=== PATIENT | female | born 1940 | race Caucasian/White ===

== ENCOUNTER 2017-02-07 05:23 | Inpatient (IN) | payer OTHER ==
[2017-01-26 11:16] VITALS: BMI 35.0
--- NOTE | 2017-01-26 11:54 | PAT Medication Instructions ---
Service Date Jan 26, 2017. Current Home Medication List Acetaminophen (Tylenol Arthritis Ext Rel), 1,300 MG PO TID Aspirin (Aspirin Ec), 81 MG PO QAM Buspirone Hcl (Buspirone Hcl), 10 MG PO TID Citalopram Hydrobromide (Celexa), 20 MG PO QAM Fluticasone Propionate (Nasal) (Flonase Allergy Relief), 2 SPRAYS JUVENAL QAM Hydroxychloroquine Sulfate (Plaquenil), 400 MG PO HS Loratadine (Claritin), 10 MG PO QAM Losartan Potassium (Cozaar), 25 MG PO QAM Metformin Hcl (Glucophage), 1,000 MG PO BID Metoprolol Tartrate (Lopressor) (Lopressor), 1.5 MG PO HS Multivitamin (Multivitamin), 1 TAB PO QPM Omeprazole (Prilosec), 20 MG PO QAM Polyethylene Glycol 3350 (Bulk (Polyethylene Glycol 3350), 17 GM PO QAM Senna (Senokot), 4 TAB PO HS Tramadol (Ultram), 50 MG PO Q6H PRN for RN Triamterene/Hctz (Triamterene/Hctz 37.5-25MG), 1 TAB PO QAM Trolamine Salicylate (Aspercreme), 1 DOSE TOP PRN [Artificial Tears], 1 DROP OPB QAM [Calcium], 600 MG PO BID [Oxybutynin], 15 MG PO QAM Medication Instructions For Your Scheduled Surgery - Hold the following medications 48 hours prior to surgery: Metformin Hcl (Glucophage), 1,000 MG PO BID - Hold the following medications 24 hours prior to surgery: Trolamine Salicylate (Aspercreme), 1 DOSE TOP PRN - Hold the following medications the morning of surgery: Loratadine (Claritin), 10 MG PO QAM Losartan Potassium (Cozaar), 25 MG PO QAM Polyethylene Glycol 3350 (Bulk (Polyethylene Glycol 3350), 17 GM PO QAM [Calcium], 600 MG PO BID Triamterene/Hctz (Triamterene/Hctz 37.5-25MG), 1 TAB PO QAM - Take the following medications the morning of surgery with a sip of water OTHERWISE NOTHING TO EAT OR DRINK AFTER MIDNIGHT: [Oxybutynin], 15 MG PO QAM Acetaminophen (Tylenol Arthritis Ext Rel), 1,300 MG PO TID (may take if needed up to 4 hours prior to surgery) Tramadol (Ultram), 50 MG PO Q6H PRN (may take if needed up to 4 hours prior to surgery) Aspirin (Aspirin Ec), 81 MG PO QAM Citalopram Hydrobromide (Celexa), 20 MG PO QAM Buspirone Hcl (Buspirone Hcl), 10 MG PO TID Omeprazole (Prilosec), 20 MG PO QAM Fluticasone Propionate (Nasal) (Flonase Allergy Relief), 2 SPRAYS JUVENAL QAM [Artificial Tears], 1 DROP OPB QAM - Take the following medications as scheduled the night before surgery: Metoprolol Tartrate (Lopressor) (Lopressor), 1.5 MG PO HS Acetaminophen (Tylenol Arthritis Ext Rel), 1,300 MG PO TID Buspirone Hcl (Buspirone Hcl), 10 MG PO TID Multivitamin (Multivitamin), 1 TAB PO QPM Hydroxychloroquine Sulfate (Plaquenil), 400 MG PO HS [Calcium], 600 MG PO BID Senna (Senokot), 4 TAB PO HS Tramadol (Ultram), 50 MG PO Q6H PRN If you have any questions please call us at [phone] or [phone] or [phone]
--- NOTE | 2017-01-26 12:36 | DIAGNOSTIC IMAGING REPORT ---
TWO VIEW CHEST CLINICAL HISTORY: Preoperative examination. FINDINGS: PA and lateral chest radiographs are obtained. No prior studies are available for comparison at the time of dictation. The PA view is degraded by apical lordotic positioning. The cardiomediastinal silhouette is unremarkable. There is atherosclerotic calcification of the thoracic aorta. There is minimal left basilar atelectasis. The lungs and pleural spaces are otherwise clear. There is no pneumothorax. The skeletal structures are osteopenic. The bony thorax appears intact. Large calcified joint bodies are present in the right shoulder. IMPRESSION: No active disease in the chest. Electronically signed by: Sukumar Acosta M.D. 01/26/2017 12:34 PM Dictated Date/Time: 01/26/2017 12:33 PM
[2017-01-26 12:53] LABS: PROTHROMBIN TIME (PATIENT) 10.7 SECONDS (9.0-12.0)
--- NOTE | 2017-02-06 18:09 | HISTORY & PHYSICAL EXAMINATION ---
DATE OF ADMISSION: 02/07/2017 CHIEF COMPLAINT: Chronic right shoulder pain. HISTORY OF PRESENT ILLNESS: This is a 76-year-old female patient of Dr. Jerry'sera complaining of chronic right shoulder pain, longstanding, now progressively getting worse. The patient has been diagnosed with end-stage osteoarthritis, per clinical and radiographic exams. PAST MEDICAL HISTORY: Hypertension, chronic cough, anxiety, carpal tunnel syndrome, osteoarthritis, spine problems, neck problems, sciatica, acid reflux, and hiatal hernia. SOCIAL HISTORY: The patient was a 10-year smoker, quit in 1975. Alcohol none. Illicit drugs none. PAST SURGICAL HISTORY: Hysterectomy, gallbladder, total knee replacement on the right, total knee replacement on the left and 2 back surgeries. REVIEW OF SYSTEMS: The patient complains of chronic right shoulder pain. Otherwise, denies any shortness of breath, chest pain, nausea, vomiting or any other joint complaints. FAMILY HISTORY: Noncontributory. MEDICATIONS: 1. MiraLax daily. 2. Ditropan 15 mg daily. 3. Metformin 1000 mg b.i.d. 4. Losartan 25 mg daily. 5. Loratadine 10 mg daily. 6. Buspirone 10 mg 3 times daily. 7. Plaquenil 200 mg 2 tablets daily. 8. Maxzide that is triamterene/hydrochlorothiazide 37.5/25 mg daily. 9. Celexa 20 mg daily. 10. Prilosec 20 mg daily. 11. Tramadol 50 mg as needed. 12. Flonase 50 mg administered 2 sprays in each nostril daily. 13. Lopressor 25 mg 1/2 tablet daily. 14. Aspirin 81 mg daily. 15. Senna 8.6 mg 2 capsules daily as needed p.r.n. constipation. 16. Artificial tears 0.1-0.3% ophthalmic solution as needed. 17. Tylenol as needed. 18. Calcium daily. 19. A multivitamin daily. ALLERGIES: INCLUDE SULFA, MORPHINE, CODEINE. PHYSICAL EXAMINATION: GENERAL: Well-developed, well-nourished 76-year-old female patient of Dr. Downey complaining of chronic right shoulder pain, longstanding, now progressively getting worse. The patient failed conservative treatments and wishes to proceed with a right total shoulder arthroplasty. Well-developed, well-nourished female in no acute distress. She is alert and oriented x3 and pleasant. HEENT: Normocephalic, atraumatic. Extraocular motions are intact. Pupils are equal and reactive to light. HEART: Regular rate and rhythm. No murmurs are appreciated. LUNGS: Clear. ABDOMEN: Soft and nontender. EXTREMITIES: Right shoulder reveals active range of motion of 0-160, passively to 0-180. She has crepitation and pain with passive range of motion. She has 4+/5 strength. NEUROLOGIC: Neurovascularly, she is intact in her right upper extremity. DIAGNOSES: Right shoulder end-stage osteoarthritis with a history of hypertension, chronic cough, anxiety, carpal tunnel syndrome, osteoarthritis, spine problems, neck problems, sciatica, acid reflux, hiatal hernia. PLAN: The patient was advised of her diagnosis. Indications, risks, benefits, and postop course have all been reviewed. The patient will proceed with a right total shoulder arthroplasty. Necessary consent forms, preoperative testing and clearances will be obtained.
[2017-02-07] VITALS (9 sets, daily range): BP systolic 105–168; BP diastolic 56–109; PULSE 71–101; TEMP 36.5–36.8; O2SAT 92–98; Ht 162.6 cm; Wt 91.5 kg
[~2017-02-07] VITALS: Ht 162.6 cm; Wt 91.5 kg
[~2017-02-07 05:23] MED LIST: ACET1TAB84 PO; ARTISOL8 OPB; ASPI81TA28 PO; BUSP-8 PO; CALC-51 PO; CITA20TA9 PO; CLR10 PO; FLUT0.15 NAE; HYDR200T5 PO; LOSA25TA18 PO; METF-384 PO; METO25TA56 PO; MULT-506 PO; OXYBUTYNIN PO; POLY1POW2 PO; PRLSR20 PO; SENN-61 PO; TRAM-10 PO; TRIATAB3 PO; TROL10LO TOP
[2017-02-07] MEDS ORDERED: ACETAMINOPHEN 500 MG TAB PO SCH (06:00)
[2017-02-07] MEDS ORDERED: CeleBREX 200 MG CAP PO SCH (06:00)
[2017-02-07] MEDS ORDERED: FAMOTIDINE 20 MG TAB PO SCH (06:00)
[2017-02-07] MEDS ORDERED: METOCLOPRAMIDE HCL 10 MG TAB PO SCH (06:00)
[2017-02-07] MEDS ORDERED: LACTATED RINGER'S 1000ML IV SCH (06:00)
[2017-02-07] MEDS ORDERED: LACTATED RINGER'S 1000ML 1,000 ML IV SCH (06:00)
[2017-02-07] MEDS ORDERED: GABAPENTIN 300 MG CAP PO SCH (06:00)
[2017-02-07] MEDS ORDERED: CEFAZOLIN 2000 MG/60 ML D5W 60 ML IV SCH (06:00)
[2017-02-07] MEDS ORDERED: MELATAB2 PO (06:25)
[2017-02-07] MEDS ORDERED: ROPIVACAINE 0.5% 5 MG/ML 30 ML VIAL ONE (06:34)
[2017-02-07] MEDS ORDERED: DEXAMETHASONE SOD INJ 4 MG/ML VIAL ONE (06:56)
[2017-02-07] MEDS ORDERED: MIDAZOLAM HCL 1 MG/ML 2ML VIAL ONE ×2 (06:56→06:57)
[2017-02-07] MEDS ORDERED: NEOSTIGMINE METHYLSULFATE 5 MG/5 ML SYR ONE (06:56)
[2017-02-07] MEDS ORDERED: GLYCOPYRROLATE INJ 0.2 MG/ML VIAL ONE (06:56)
[2017-02-07] MEDS ORDERED: PROPOFOL IV EMULSION 10 MG/ML 20 ML VIAL IV ONE (06:56)
[2017-02-07] MEDS ORDERED: LIDOCAINE HCL 2% 2 ML VIAL (20MG/ML) ONE (06:56)
[2017-02-07] MEDS ORDERED: ONDANSETRON INJ 2 MG/ML 2 ML VIAL ONE ×2 (06:56→09:44)
[2017-02-07] MEDS ORDERED: ROCURONIUM BROMIDE 10 MG/ML 5 ML VIAL ONE (06:56)
[2017-02-07] MEDS ORDERED: FENTANYL CITRATE INJ 50 MCG/1 ML 2 ML VIAL ONE (06:57)
[2017-02-07] MEDS ORDERED: BACITRACIN 50000 UNIT VIAL ONE (07:01)
--- NOTE | 2017-02-07 07:17 | History & Physical Bridge Note ---
H&P Re-Evaluation Bridge Note: I have examined the patient, reviewed the History & Physical and in the interval since the performance of the History & Physical I have noted the following changes of clinical significance: No changes noted
[2017-02-07] MEDS ORDERED: ATROPINE SULFATE 0.1 MG/ML 5ML SYR IV PRN (09:30)
[2017-02-07] MEDS ORDERED: EpHEDrine SULFATE INJ 50 MG/ML AMP IV PRN (09:30)
[2017-02-07] MEDS ORDERED: ONDANSETRON INJ 2 MG/ML 2 ML VIAL IV PRN ×2 (09:30→10:15)
[2017-02-07] MEDS ORDERED: FENTANYL CITRATE INJ 50 MCG/1 ML 2 ML VIAL IV PRN (09:30)
[2017-02-07] MEDS ORDERED: SOD PHOSPHATE/SOD BIPHOSPHATE ENEMA 132 ML BTL PR PRN (10:15)
[2017-02-07] MEDS ORDERED: ZOLPIDEM TARTRATE 5 MG TAB PO PRN (10:15)
[2017-02-07] MEDS ORDERED: HYDROmorphone INJ 0.5 MG/0.5 ML SYR IV PRN (10:15)
[2017-02-07] MEDS ORDERED: MAGNESIUM HYDROXIDE SUSP 30 ML UDC PO PRN (10:15)
[2017-02-07] MEDS ORDERED: NALOXONE HCL 0.4 MG/1 ML VIAL/CARP IV PRN (10:15)
[2017-02-07] MEDS ORDERED: BISACODYL 10 MG SUPP PR PRN (10:15)
--- NOTE | 2017-02-07 10:38 | [facility] Operative Report ---
Operative Report Operative Date Feb 07, 2017. Pre-Operative Diagnosis End stage Osteoarthritis, right shoulder Post-Operative Diagnosis same multiple loose bodies and synovitis tendinopathy rotator cuff partial Procedure(s) Performed right total shoulder replacement and biceps tenodesis and removal loose bodies and rotator cuff debridement Surgeon Dr. Jerry Electrical Engineering Technologist Surgeon(s) Olayinka Mills PA-C Estimated Blood Loss 75 ml Findings as above Specimens A: Right humeral Head Drains 2 hemovac Anesthesia general and regional Complication(s) None Disposition Recovery Room / PACU Indications end stage djd oa I attest to the content of the Intraoperative Record and any orders documented therein. Any exceptions are noted below.
--- NOTE | 2017-02-07 10:45 | Anesthesiology Progress Note ---
Anesthesia Post Op Note Date & Time Feb 07, 2017 at 10:45 Vital Signs Pain Intensity: 0 Vital Signs Past 12 Hours Date Time Temp Pulse Resp B/P Pulse Ox O2 Delivery O2 Flow Rate FiO2 02/07/17 10:40 106 16 147/75 95 Nasal Cannula 2 02/07/17 10:30 93 16 97/71 99 Mask 10 02/07/17 10:20 96 16 171/68 97 Mask 10 02/07/17 10:14 36.2 89 16 136/77 99 Mask 10 02/07/17 06:09 36.5 71 18 168/75 96 Room Air 149/109 Notes Mental Status: alert / awake / arousable, participated in evaluation Pt Amnestic to Procedure: Yes Nausea / Vomiting: adequately controlled Pain: adequately controlled Airway Patency, RR, SpO2: stable & adequate BP & HR: stable & adequate Hydration State: stable & adequate Anesthetic Complications: no major complications apparent
--- NOTE | 2017-02-07 10:59 | DIAGNOSTIC IMAGING REPORT ---
RIGHT SHOULDER MIN 2 VIEWS ROUTINE CLINICAL HISTORY: Post shoulder surgery Right COMPARISON: None. DISCUSSION: Total right shoulder arthroplasty. Prosthetic is in good position. Surgical drains are in position. There is no evidence for soft tissue swelling. IMPRESSION: Anatomic alignment status post total right shoulder replacement Electronically signed by: Olayinka Sotomayor M.D. 02/07/2017 10:58 AM Dictated Date/Time: 02/07/2017 10:58 AM
--- NOTE | 2017-02-07 12:27 | OPERATIVE REPORT ---
DATE OF OPERATION: 02/07/2017 INDICATION FOR PROCEDURE: The patient is a 76-year-old female with progressive chronic right shoulder pain with end-stage osteoarthritis. She is [id number] in the glenohumeral joint. She has inferior osteophytes around the humeral head. She has multiple loose bodies in the shoulder. PREOPERATIVE DIAGNOSIS: End-stage right shoulder glenohumeral osteoarthritis, multiple loose bodies. POSTOPERATIVE DIAGNOSIS: Same including chronic biceps tenosynovitis with rotator cuff tendinopathy, partial tear rotator cuff, glenohumeral synovitis. PROCEDURE: Right total shoulder replacement including biceps tenodesis, removal of multiple loose bodies and debridement, partial tear rotator cuff. SURGEON: Dr. Jerry. REGIONAL LOSS PREVENTION MANAGER: Olayinka Mills PA-C. ANESTHESIA: Regional block general. OPERATIVE PROCEDURE: The patient was taken to the operating room, anesthetized under regional block and general anesthetic. She was placed on the operating room table on a standard operating room table in approximately 30-40 degree beach chair position. She had a Chapman catheter placed, TEDs and SCDs placed. She had a towel roll placed on the medial border of her right scapula. She was translated to the right side of the bed, so her shoulder could be extended off the bed and rotated as necessary. Her head was placed on a foam headrest. She had protective eyewear placed. Right shoulder was then examined under anesthesia. She had good forward elevation 150 degrees, abduction to 90, external rotation to 40. She had an obese arm. Right shoulder and upper extremity was sterilely prepped and draped with ChloraPrep in usual fashion. Anterior deltopectoral approach was performed. A longitudinal incision was made deltopectoral interval. Skin was incised sharply. Deep layer fat was divided down to the fascia. The cephalic vein was dissected out and retracted laterally with the deltoid. The upper pectoralis tendon was identified. One centimeter of the pectoralis was released for inferior exposure. Biceps tendon had significant chronic tenosynovitis. The tendon was tenodesed to the pectoralis tendon using [id number] #2 Fiberwire sutures. The biceps was resected proximally. The clavipectoral fascia was divided at the lateral margin of the conjoined tendon and extended up to the CA ligament which was preserved. The subacromial bursa was resected. Rotator cuff was noted to be completely intact. Subscap supraspinatus, infraspinatus and teres minor were all intact. A self-retaining retractor was placed. The circumflex vessels were identified, tied off with silk ties and divided laterally. The subscap muscle fibers were split at the level of the circumflex vessels leaving a cup of subscap fibers to protect the axillary nerve inferiorly. A Kitner elevator was used to reflect these fibers off the inferior capsule and a blunt Hohmann retractor was placed underneath the inferior capsule to protect the axillary nerve. The rotator interval was opened up. An incision was made laterally and then the subscapularis tendon was taken down with a transtendinous incision leaving a cuff of tissue for repair on the lesser tuberosity. A #1 Vicryl traction suture was placed into the end of the subscapularis tendon. The capsule was then taken down off the neck of the humerus. Humerus was gradually externally rotated as the capsule was released off the neck. This revealed she had a large inferior humeral osteophyte, and a large osteophyte right along the neck area. These osteophytes were removed with an artist chisel and rongeur. The humeral head was completely exposed eburnated bone. Glenoid was completely exposed eburnated bone and had a large anterior inferior osteophyte on the glenoid as well. A Fukuda retractor was placed into the joint. The labrum was resected circumferentially and the biceps tendon was resected as well. This revealed some very large loose bodies, one was at least 2.5 cm x 1.5 cm and there was some other small loose bodies that were removed. The capsule was then released subperiosteally anterior inferiorly and posterior inferiorly using electrocautery on bone and with a Wisdom elevator with the blunt Whitney retractor previously been placed to protect the axillary nerve which was identified with a tug test prior to placing tractor. At this time, the humeral head was re-exposed with extension and external rotation. Anatomic cut was made to resect the humeral articular surface. Then we retracted the humerus laterally and this revealed some undersurface partial tearing of the infraspinatus which was frayed and some of this was just inflamed and thickened capsule, so we resected this tissue back to intact infraspinatus tendon tissue. We investigated the entire joint for any further loose bodies and no further were identified. We also did a release of the anterior capsule down to the glenoid and the rotator interval down to the anterior release so we ended up with a 360 degree release of the subscapularis. At this time, we placed glenoid retractors to fully expose the glenoid. I used the Tornier total shoulder arthroplasty system for the procedure. We used the Affiniti CortiLoc Glenoid. The central drill hole was made for the reamer. There was a little bit of eccentric wear so we did ream more toward the anterior glenoid to recreate normal version. Then after the reamer was used for a 44 glenoid the central drill hole was widened. The peg holes were drilled and then the trial reduction was performed and then the trial was removed. The trial had excellent fit. After irrigation copiously with antibiotic solution and bacitracin epinephrine soaked sponges were packed into each individual hole and then the Palacos G cement was vacuum mixed. Then the glenoid was cemented cementing the peripheral peg holes, base of the central peg with central peg was essentially just pressfit without cementing at the medial aspect. This was impacted in position with a very tight pressfit and all excess cement was cleared and the implant was held in position until the cement cured. Then we went ahead and re-exposed the humeral cut surface. Central awl was used followed by broaches up to 3 which was appropriate fit and fill. The broaches up to 3 were used and then a low offset 46 mm diameter head was appropriate size. We assessed the range of motion, stability which was satisfactory. The trial was then removed and the final components were assembled which was the Aequalis Ascend Flex standard humeral stem, 3B stem was assembled to the 46 x 17 low offset humeral head. That component was then impacted into the humerus. We had previously placed three #5 FiberWire sutures through the lesser tuberosity starting medial to the lesser tuberosity and bicipital groove area passing around that 3 times. Then those sutures were used to repair the subscapularis with the Ramon-Marcelo suture technique and also lateral row soft tissue repair with #2 Fiberwire [id number] sutures and the rotator interval was closed in maximal external rotation with interrupted #2 Fiberwire sutures. The pectoralis tendon was repaired with [id number] #2 FiberWire sutures reinforcing the biceps tenodesis with sutures being passed through the biceps as well. This completed the procedure and we checked the range of motion at 40 degrees of external rotation and 130 degrees of forward elevation, 90 degrees of abduction without any tension on the repair. After copious irrigation, 2 drains were placed deep to deltopectoral interval. Deltopectoral was closed with [id number] #1 Vicryl sutures. Subcutaneous tissue closed with interrupted 2-0 Vicryl sutures, skin closed with johann. Sterile dressing was applied. The patient tolerated the procedure well. Olayinka Mills PA-C was my insurance assistant. He functioned as insurance assistant for the entire procedure. He assisted in patient positioning, prepping and draping, arm positioning, instrument management, instrument management, soft tissue retraction and assisted throughout the procedure. He did participate in the final closure of subcutaneous skin and will participate in postoperative care of the patient. I attest to the content of the Intraoperative Record and any orders documented therein. Any exceptio ns are noted below.
[2017-02-07] MEDS ORDERED: TROLAMINE SALICYLATE 10% CRM 255 APPLN/85 GM TUBE EXT PRN (12:45)
[2017-02-07] MEDS ORDERED: DEXTROSE 50% 50 ML SYR IV PRN (12:45)
[2017-02-07] MEDS ORDERED: GLUCAGON FOR INJ 1 MG VIAL SQ PRN (12:45)
[2017-02-07] MEDS ORDERED: GLUCOSE 10 TABS/TUBE PO PRN (12:45)
[2017-02-07] MEDS ORDERED: GLUCOSE 40% GEL 15 GM TUBE PO PRN (12:45)
[2017-02-07] MEDS: POTASSIUM CHLORIDE INJ 10 MEQ in SODIUM CHLORIDE 0.9% 1000ML 1,000 ML IV SCH ×2 (13:24→22:59)
[2017-02-07] MEDS: ACETAMINOPHEN 500 MG TAB PO SCH ×2 (13:25→21:28)
[2017-02-07] MEDS: INSULIN ASPART 100 UNITS/ML 3 ML PEN SC SCH ×3 (13:35→21:37)
--- NOTE | 2017-02-07 13:56 | Medical Consult ---
Consultation Date of Consultation: Feb 07, 2017. Attending Physician: Darian Jerry M.D. 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 She is here today for an elective total shoulder which was successfully performed this morning. She is doing well post-operatively and is not in pain. Past Medical/Surgical History Medical Problems: (1) Allergic rhinitis Status: Chronic (2) Anxiety Status: Chronic (3) CLL (chronic lymphocytic leukemia) Status: Chronic (4) Diabetes mellitus Status: Chronic (5) DJD of right shoulder Status: Chronic (6) GERD (gastroesophageal reflux disease) Status: Chronic (7) Hypertension Status: Chronic (8) Lichen planus Status: Chronic (9) Osteoarthritis Status: Chronic Surgical Problems: (1) H/O total knee replacement Permanent Comment: Right and Left Status: Chronic (2) H/O: hysterectomy Status: Chronic (3) History of cholecystectomy Status: Chronic (4) Previous back surgery Status: Chronic Family History Patient reports no known family medical history. Social History Smoking Status: Former Smoker Alcohol Use: none Drug Use: none Marital Status: single Housing Status: lives alone Allergies Coded Allergies: Morphine (Unverified Allergy, Unknown, ITCHY FACE, 02/07/17) Sulfa Antibiotics (Unverified Allergy, Unknown, UNKNOWN, 02/07/17) Codeine (Unverified Adverse Reaction, Unknown, GI UPSET, 02/07/17) Ibuprofen (Unverified Adverse Reaction, Unknown, GI UPSET, 02/07/17) Home Medications Reported Home Medications Medications Dose Route/Sig Max Daily Dose Days Date Category Melatonin Maximum Strengt (Melatonin) 5 Mg Tab 2 Tab PO HS 30 02/07/17 Reported Aspercreme (Trolamine Salicylate) 10 % Lot 1 Dose TOP PRN 01/26/17 Reported Multivitamin (Multivitamins) Tab 1 Tab PO QPM 01/26/17 Reported [Calcium] 600 Mg PO BID 01/26/17 Reported Tylenol Arthritis Ext Rel (Acetaminophen) 650 Mg Cplt 1,300 Mg PO TID 01/26/17 Reported [Artificial Tears] 1 Drop OPB QAM 01/26/17 Reported Aspirin Ec (Aspirin) 81 Mg Tab 81 Mg PO QAM 01/26/17 Reported Lopressor (Metoprolol Tartrate) 25 Mg Tab 12.5 Mg PO HS 01/26/17 Reported Flonase Allergy Relief (Fluticasone Propionate (Nasal)) 50 Mcg/Act Spr 2 Sprays JUVENAL QAM 01/26/17 Reported Ultram (Tramadol HCl) 50 Mg Tab 50 Mg PO Q6H PRN 01/26/17 Reported Prilosec (Omeprazole) 20 Mg Capcr 20 Mg PO QAM 01/26/17 Reported Celexa (Citalopram Hydrobromide) 20 Mg Tab 20 Mg PO QAM 01/26/17 Reported Triamterene/Hctz 37.5-25MG (Triamterene/HCTZ) 1 Tab Tab 1 Tab PO QAM 01/26/17 Reported Plaquenil (Hydroxychloroquine Sulfate) 200 Mg Tab 400 Mg PO HS 01/26/17 Reported Buspirone Hcl 10 Mg Tab 10 Mg PO TID 01/26/17 Reported Claritin (Loratadine) 10 Mg Tab 10 Mg PO QAM 01/26/17 Reported Cozaar (Losartan Potassium) 25 Mg Tab 25 Mg PO QAM 01/26/17 Reported Glucophage (Metformin Hcl) 1,000 Mg Tab 1,000 Mg PO BID 01/26/17 Reported [Oxybutynin] 15 Mg PO QAM 01/26/17 Reported Polyethylene Glycol 3350 (Polyethylene Glycol 3350 (Bulk) 1 Pow Pow 17 Gm PO QAM 01/26/17 Reported Senokot (Senna) 8.6 Mg Tab 4 Tab PO HS 01/26/17 Reported Current Inpatient Medications Current Inpatient Medications Medications (Trade) Dose Ordered Sig/Babar Route Start Time Stop Time Status Last Admin Dose Admin Lactated Ringer's 1,000 ml @ 60 mls/hr [id number] IV 02/07/17 06:00 02/07/17 22:39 02/07/17 06:43 60 MLS/HR Cefazolin Sodium (Ancef 2000mg/60 ml D5W) 60 ml @ 100 mls/hr PREOP IV 02/07/17 06:00 02/07/17 18:00 02/07/17 07:26 100 MLS/HR Acetaminophen (Tylenol Tab) 1,000 mg PREOP PO 02/07/17 06:00 02/07/17 18:00 Celecoxib (CeleBREX CAP) 200 mg PREOP PO 02/07/17 06:00 02/07/17 18:00 02/07/17 06:32 200 MG Famotidine (Pepcid Tab) 20 mg PREOP PO 02/07/17 06:00 02/07/17 18:00 02/07/17 06:32 20 MG Gabapentin (Neurontin Cap) 300 mg PREOP PO 02/07/17 06:00 02/07/17 18:00 02/07/17 06:31 300 MG Metoclopramide HCl 10 mg 10 mg PREOP PO 02/07/17 06:00 02/07/17 18:00 02/07/17 06:31 10 MG Lactated Ringer's (Lr 1000ml) 1,000 ml @ 15 mls/hr Q24H IV 02/07/17 06:00 02/08/17 05:59 Fentanyl Citrate (Fentanyl Inj) 25 mcg Q5M PRN IV 02/07/17 09:30 02/07/17 14:30 Ondansetron HCl (Zofran Inj) 4 mg ONE PRN IV 02/07/17 09:30 02/07/17 14:30 Ephedrine Sulfate (EpHEDrine SULFATE INJ) 5 mg Q5M PRN IV 02/07/17 09:30 02/07/17 14:30 Atropine Sulfate (Atropine Sulfate 0.1MG/Ml Inj) 0.5 mg Q1M PRN IV 02/07/17 09:30 02/07/17 14:30 Aspirin (Ecotrin Tab) 81 mg QAM PO 02/08/17 09:00 03/10/17 08:59 UNV Citalopram Hydrobromide (celeXA TAB) 20 mg QAM PO 02/08/17 09:00 03/10/17 08:59 UNV Fluticasone Propionate (Flonase Nasal [place]) 2 sprays QAM JUVENAL 02/08/17 09:00 03/10/17 08:59 UNV Hydroxychloroquine Sulfate (Plaquenil Tab) 400 mg HS PO 02/07/17 21:00 03/09/17 20:59 UNV Loratadine (Claritin Tab) 10 mg QAM PO 02/08/17 09:00 03/10/17 08:59 UNV Losartan Potassium (coZAAR TAB) 25 mg QAM PO 02/08/17 09:00 03/10/17 08:59 UNV Metoprolol Tartrate (Lopressor Tab) 1.5 mg HS PO 02/07/17 21:00 03/09/17 20:59 UNV Multivitamins (Multivitamin Tab) 1 tab QPM PO 02/07/17 21:00 03/09/17 20:59 UNV Senna (Senokot Tab) 34.4 mg HS PO 02/07/17 21:00 03/09/17 20:59 UNV Triamterene/HCTZ (Maxzide 37.5/25 Tab) 1 tab QAM PO 02/08/17 09:00 03/10/17 08:59 UNV Buspirone HCl (Buspar Tab) 10 mg TID PO 02/07/17 14:00 03/09/17 13:59 UNV Polyethylene (Miralax Powder Packet) 17 gm QAM PO 02/08/17 09:00 03/10/17 08:59 UNV Non-Formulary Medication (Trolamine Salicylate (Aspercreme)) 1 dose PRN TOP 02/07/17 10:15 03/09/17 10:14 UNV Non-Formulary Medication ([Artificial Tears] ) 1 drop QAM OPB 02/08/17 09:00 03/10/17 08:59 UNV Calcium Carbonate (oS-Bryant 500 TAB) 1,250 mg BIDM PO 02/07/17 17:45 03/09/17 17:59 UNV Non-Formulary Medication ([Oxybutynin] ) 15 mg QAM PO 02/08/17 09:00 03/10/17 08:59 UNV Diphenhydramine HCl (Benadryl Cap) 25 mg Q8 PRN PO 02/07/17 10:15 03/09/17 10:14 Zolpidem Tartrate (Ambien Tab) 5 mg HSZ PRN PO 02/07/17 10:15 03/09/17 10:14 Ondansetron HCl (Zofran Inj) 4 mg Q6H PRN IV 02/07/17 10:15 03/09/17 10:14 Pantoprazole Sodium 40 mg 40 mg QAM PO 02/08/17 09:00 03/10/17 08:59 UNV Potassium Chloride/Sodium Chloride (KCl Inj/Nss 1000ml) 1,005 ml @ 100 mls/hr Q10H3M IV 02/07/17 10:14 02/08/17 11:00 UNV Oxycodone HCl (Roxicodone Immediate Rel Tab) `1-2 TABS FOR PAIN `1 TAB... Q4H PRN PO 02/07/17 10:15 02/21/17 10:14 Oxycodone HCl (Oxycontin Tab) 10 mg Q12 PO 02/07/17 21:00 02/21/17 20:59 Acetaminophen (Tylenol Tab) 1,000 mg Q8 PO 02/07/17 14:00 03/09/17 13:59 UNV Naloxone HCl (Narcan Inj) 0.1 mg Q2M PRN IV 02/07/17 10:15 03/09/17 10:14 Magnesium Hydroxide (Milk Of Magnesia Susp) 30 ml Q6H PRN PO 02/07/17 10:15 03/09/17 10:14 Bisacodyl (Dulcolax Supp) 10 mg DAILY PRN [place] 02/07/17 10:15 03/09/17 10:14 Sodium Biphosphate/ Sodium Phosphate (Fleet Enema) 132 ml DAILY PRN [place] 02/07/17 10:15 03/09/17 10:14 Docusate Sodium 100 mg 100 mg BID PO 02/07/17 21:00 03/09/17 20:59 UNV Cefazolin Sodium/ Dextrose (Ancef Iv/D5 50ml) 60 ml @ 100 mls/hr Q8H IV 02/07/17 10:15 02/07/17 18:50 UNV Insulin Aspart (novoLOG ASPART) SLIDING SCALE G... ACHS SC 02/07/17 11:00 03/09/17 10:59 UNV Hydromorphone HCl (Dilaudid Inj) 0.5 mg Q4H PRN IV 02/07/17 10:15 02/21/17 10:14 Review of Systems All systems reviewed and negative except for some minor numbness on her right thumb area post-operatively. All chronic medical problems are under control on current medications. Physical Exam Date Time Temp Pulse Resp B/P Pulse Ox O2 Delivery O2 Flow Rate FiO2 02/07/17 11:30 36.8 93 18 133/76 96 Nasal Cannula 2 02/07/17 11:20 36.8 91 16 126/74 95 Nasal Cannula 2 02/07/17 11:10 36.8 91 16 136/67 97 Nasal Cannula 2 02/07/17 11:00 94 16 137/63 97 Nasal Cannula 2 02/07/17 10:50 95 16 158/71 97 Nasal Cannula 2 02/07/17 10:40 106 16 147/75 95 Nasal Cannula 2 02/07/17 10:30 93 16 97/71 99 Mask 10 02/07/17 10:20 96 16 171/68 97 Mask 10 02/07/17 10:14 36.2 89 16 136/77 99 Mask 10 02/07/17 06:09 36.5 71 18 168/75 96 Room Air 149/109 GEN: WNWD, in no acute distress, alert and appropriate, sittin gcomfortably in bed with her R arm in a sling HEENT: NC/AT, normal sclerae CARDIO: reg rate, S1/2 heard without m/g/r LUNGS: CTA bilaterally, no crackles, rales or wheezes, good diaphragmatic excursion ABD: soft, non-tender, non-distended, no rebound or guarding EXTREMITY: R arm in [id number] bandages in place and are clean, dry and intact. Some numbness reported on R thumb but otherwise normal sensation in rest of hand. 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 Drain in place with bloody drainage in container. Other extremities are warm and well- perfused. Some minor ecchymosis is noted on her L forearm. No edema. NEURO: CN 2-12 grossly intact, no gross focal deficits except minor numbness of thumb on right hand MSK: well-developed musculature, able to sit up in bed with minimal assistance. R arm in sling. SKIN: warm and dry and as above. Laboratory Results PREOP WORKUP FROM 01/25: CBC: 7.2>12.3/38<301 BMP: Ca 9.8, Na 135, K 4.2, HCO3 29, Cl 91, BUN 9, Cr 0.6. Gluc 101 A1C: 5.8 CXR: no acute findings EKG: SR 92, no ischemic changes Assessment & Plan 1. Post-op state: s/p R total shoulder replacement -POD 0; surgery performed by Dr. Jerry -post-operative pain well managed -monitor for acute blood loss with daily H&H -pt encouraged to utilize spirometry to prevent post-op infection -PT/OT -activity and wound care orders per ortho protocol -will continue to follow 2. HTN-controlled, cont Cozaar and Maxzide 3. Anxiety-controlled, cont Celexa and Buspar per home regimen 4. Urinary incontinence-on oxybutinin per home regimen. Chapman in place. 5. DMII-A1C controlled, Metformin held and Novolog per ISS with pharmacy assist. If blood sugars are well-controlled consistently, may consider stopping fingersticks for comfort, however, in the setting of quinton-operative steroids, initial monitoring will be important. 6. GERD-on Omeprazole at home, Protonix daily while admitted. DVT Prophylaxis -per ortho protocol Code Status -full code Dispo -per ortho, but likely to rehab for a short stay and then home with friends. She lives alone but has support from her two daughters who live close by. Thank you for this consultation. We will follow the patient with you during their hospital stay. You can reach a member of the [facility] Hospitalist Team 28/05 via pager @ . You can reach me via cell @ [phone]. Geno Harper, [facility]
[2017-02-07] MEDS: CEFAZOLIN IV 2,000 MG in DEXTROSE 5% 50ML 50 ML IV SCH ×2 (15:59→23:58)
[2017-02-07] MEDS: CALCIUM CARBONATE 1250MG TAB PO SCH (18:04)
[2017-02-07] MEDS: OXYCODONE HCL IR 5 MG TAB (IMMEDIATE RELEASE) PO PRN (20:15)
[2017-02-07] MEDS ORDERED: METOPROLOL TARTRATE 25 MG TAB PO SCH (21:00)
[2017-02-07] MEDS ORDERED: MELATONIN PO SCH (21:00)
[2017-02-07] MEDS: DOCUSATE SODIUM 100 MG CAP PO SCH (21:25)
[2017-02-07] MEDS: METOPROLOL TARTRATE 25 MG TAB PO SCH (21:27)
[2017-02-07] MEDS: SENNA 8.6 MG TAB PO SCH (21:28)
[2017-02-07] MEDS: HYDROXYCHLOROQUINE SULFATE 200 MG TAB PO SCH (21:29)
[2017-02-07] MEDS: OXYCODONE HCL 10 MG TABCR (OXYCONTIN) PO SCH (21:29)
[2017-02-07] MEDS: MULTIVITAMIN TAB PO SCH (21:29)
[2017-02-08 03:10] VITALS: BP 104/61; PULSE 75; TEMP 36.7; O2SAT 95
[2017-02-08] MEDS: OXYCODONE HCL IR 5 MG TAB (IMMEDIATE RELEASE) PO PRN ×4 (04:00→23:27)
[2017-02-08] MEDS: ACETAMINOPHEN 500 MG TAB PO SCH ×3 (06:14→21:49)
[2017-02-08 07:01] LABS: HEMATOCRIT 29.5 % (37-47); MEAN CELL VOLUME 81.5 fL (80-100); MEAN CORPUSCULAR HEMOGLOBIN 27.1 pg (25-34); MEAN CORPUSCULAR HGB CONC 33.2 g/dl (32-36); MEAN PLATELET VOLUME 9.3 fL (7.4-10.4); PLATELET COUNT 240 K/uL (130-400); RED BLOOD COUNT 3.62 M/uL (4.2-5.4); WHITE BLOOD COUNT 12.04 K/uL (4.8-10.8)
[2017-02-08 07:24] LABS: BUN/CREATININE RATIO 12.5 (10-20); CALCIUM 8.8 mg/dl (8.5-10.1); CREATININE 0.61 mg/dl (0.60-1.20); POTASSIUM 4.1 mmol/L (3.5-5.1)
[2017-02-08 07:28] VITALS: BP 132/76; PULSE 78; TEMP 36.7; O2SAT 95
--- NOTE | 2017-02-08 08:17 | Orthopedic Progress Note ---
Orthopedic Progress Note Date of Service Feb 08, 2017. Subjective Post OP Day: 1 Reports: feeling well, pain controlled w PO medications, Denies: SOB, calf pain , chest pain, complaints, light headedness, nausea / vomiting Objective N/V intact, capillary refill less than 2 sec., dressing C/D/I, A&O x3 fingers mobile, sling in tact. Date Time Temp Pulse Resp B/P Pulse Ox O2 Delivery O2 Flow Rate FiO2 02/08/17 07:28 36.7 78 16 132/76 95 Room Air 02/08/17 03:10 36.7 75 16 104/61 95 Room Air 02/07/17 23:30 36.7 81 16 106/67 93 Room Air 02/07/17 21:24 105/67 02/07/17 20:10 Room Air 02/07/17 19:10 36.7 95 18 107/65 96 Room Air 02/07/17 15:27 36.7 95 16 111/56 92 Room Air 02/07/17 13:55 94 16 111/68 97 2.0 02/07/17 13:10 36.5 90 16 112/71 97 Nasal Cannula 2.0 02/07/17 12:20 36.6 93 18 119/72 98 Nasal Cannula 2.0 02/07/17 11:50 Nasal Cannula 2.0 02/07/17 11:50 95 Nasal Cannula 2.0 02/07/17 11:50 36.8 101 20 135/77 95 Nasal Cannula 2.0 02/07/17 11:30 36.8 93 18 133/76 96 Nasal Cannula 2 02/07/17 11:20 36.8 91 16 126/74 95 Nasal Cannula 2 02/07/17 11:10 36.8 91 16 136/67 97 Nasal Cannula 2 02/07/17 11:00 94 16 137/63 97 Nasal Cannula 2 02/07/17 10:50 95 16 158/71 97 Nasal Cannula 2 02/07/17 10:40 106 16 147/75 95 Nasal Cannula 2 02/07/17 10:30 93 16 97/71 99 Mask 10 02/07/17 10:20 96 16 171/68 97 Mask 10 02/07/17 10:14 36.2 89 16 136/77 99 Mask 10 Laboratory Results 24 Hours: Test 4/6/17 06:17 Hematocrit 29.5 % Hemoglobin 9.8 g/dL Assessment & Plan Assessment: POD #1, Right TSA, biceps tenodesis. Plan: PT/ OT DVT proph- ASA D/C planning- rehab vs. home w HH Appreciate medicine input. Inhouse Planning Pain Management: Oxycontin, Dilaudid, PO Tylenol, Oxy IR DVT Prophylaxis: TEDs, SCDs, ASA Discharge Planning Discharge Planning: uncertain Pain Management: Oxycontin, PO Tylenol, Oxy IR DVT Prophylaxis: TEDs, ASA Therapy: Physical Therapy, Occupational Therapy
[2017-02-08] MEDS: OXYCODONE HCL 10 MG TABCR (OXYCONTIN) PO SCH ×2 (08:59→21:00)
[2017-02-08] MEDS: DOCUSATE SODIUM 100 MG CAP PO SCH ×2 (09:00→21:12)
[2017-02-08] MEDS: LOSARTAN POTASSIUM 25 MG TAB PO SCH (09:00)
[2017-02-08] MEDS ORDERED: OXYBUTYNIN CHLORIDE 5 MG TAB PO SCH (09:00)
[2017-02-08] MEDS: LORATADINE 10 MG TAB PO SCH (09:00)
[2017-02-08] MEDS ORDERED: MULTIVITAMIN TAB PO SCH (09:00)
[2017-02-08] MEDS: CALCIUM CARBONATE 1250MG TAB PO SCH ×2 (09:01→18:33)
[2017-02-08] MEDS: PANTOprazole SOD 40 MG TAB PO SCH (09:01)
[2017-02-08] MEDS: TRIAMTERENE/HCTZ 37.5/25MG TAB PO SCH (09:01)
[2017-02-08] MEDS: ASPIRIN 81 MG ECTAB PO SCH (09:01)
[2017-02-08] MEDS: CITALOPRAM 20 MG TAB PO SCH (09:01)
[2017-02-08] MEDS: OXYBUTYNIN CHLORIDE 5 MG TAB PO SCH (09:02)
[2017-02-08] MEDS: FLUTICASONE PROPIONATE NA SPR 16 GM BTL NAE SCH (09:02)
[2017-02-08] MEDS: POLYETHYLENE (MIRALAX) 17 GM PACK PO SCH (09:03)
[2017-02-08] MEDS: POTASSIUM CHLORIDE INJ 10 MEQ in SODIUM CHLORIDE 0.9% 1000ML 1,000 ML IV SCH (09:06)
[2017-02-08] MEDS: ARTIFICIAL TEARS OP SOLN OPB SCH ×2 (09:14)
[2017-02-08] MEDS: INSULIN ASPART 100 UNITS/ML 3 ML PEN SC SCH ×4 (09:21→21:00)
[2017-02-08 09:37] VITALS: BP 139/74; O2SAT 93; O2SAT 96
[2017-02-08] MEDS: TRAMADOL HCL 50 MG TAB PO SCH ×2 (14:15→21:48)
[2017-02-08 15:08] VITALS: BP 129/58; PULSE 92; TEMP 36.9; O2SAT 95
--- NOTE | 2017-02-08 17:28 | Progress Note ---
Internal Med Progress Note Date of Service: Feb 08, 2017. Provider Documentation: SUBJECTIVE: Patient is sitting in her bed in no apparent distress. Pain has been tolerable. Denies any nausea/vomiting or SOB. No BM yet. No other new change or complaint. OBJECTIVE: Vital Signs-as noted below Examination: GEN: Alert/Awake and is in no acute distress sitting comfortably in bed with her Right arm in a sling HEENT: NC/AT, normal sclerae. Ears, Nose & Throat are normal looking. Neck: Supple, Midline trachea, No JVD. CARDIO: reg rate, S1/2 heard without m/g/r LUNGS: B/L Moderate air entry, Clear to auscultation. ABD: soft, non-tender, non-distended, no rebound or guarding EXTREMITY: R arm in [id number] bandages in place and are clean, dry and intact. 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 Drain in place with bloody drainage in container. Other extremities are warm and well-perfused. Some minor ecchymosis is noted on her L forearm. No edema. NEURO: CN 2-12 grossly intact, no gross focal deficits except minor numbness of thumb on right hand MSK: well-developed musculature, able to sit up in bed with minimal assistance. Rt arm in sling. SKIN: warm and dry and as above Lab data as noted below. ASSESSMENT & PLAN: s/p Right Total Shoulder Replacement : POD # 1. Surgery performed by Dr. Jerry. Clinicaly & hemodynamically doing well. -Post-operative pain well managed -H/H has been stable. No acute drop. -Encouraged to utilize spirometry to prevent post-op infection -PT/OT -Activity and wound care orders per ortho protocol History HTN: BP is well controlled -Continue Cozaar and Maxzide under parameters. Anxiety-controlled, -Continue Celexa and Buspar per home regimen Urinary incontinence-Continue Oxybutinin per home regimen. Chapman in place. Diabetes Type II: Stable. Metformin held and Novolog per ISS with pharmacy assist. GERD: Stable. Continue PPI. DVT Prophylaxis: As per Surgical Team. Code Status: FULL CODE Disposition: As per Surgical Team. Likely to rehab for a short stay and then home with friends. She lives alone but has support from her two daughters who live close by. Thank you for this consultation. We will follow the patient with you during their hospital stay. You can reach a [facility] via pager @ [phone]. Vital Signs: Date Time Temp Pulse Resp B/P Pulse Ox O2 Delivery O2 Flow Rate FiO2 02/08/17 15:40 Room Air 02/08/17 15:08 36.9 92 18 129/58 95 Room Air 02/08/17 09:37 96 02/08/17 09:30 Room Air 02/08/17 07:28 36.7 78 16 132/76 95 Room Air 02/08/17 03:10 36.7 75 16 104/61 95 Room Air 02/07/17 23:30 36.7 81 16 106/67 93 Room Air 02/07/17 21:24 105/67 02/07/17 20:10 Room Air 02/07/17 19:10 36.7 95 18 107/65 96 Room Air Lab Results: Results Past 24 Hours Test 02/07/17 20:45 02/08/17 06:17 02/08/17 08:16 02/08/17 11:56 Range/Units Bedside Glucose 140 114 97 70-90 mg/dl White Blood Count 12.04 4.8-10.8 K/uL Red Blood Count 3.62 4.2-5.4 M/uL Hemoglobin 9.8 12.0-16.0 g/dL Hematocrit 29.5 37-47 % Mean Corpuscular Volume 81.5 80-100 fL Mean Corpuscular Hemoglobin 27.1 25-34 pg Mean Corpuscular Hemoglobin Concent 33.2 32-36 g/dl RDW Standard Deviation 47.4 36.4-46.3 fL RDW Coefficient of Variation 15.9 11.5-14.5 % Platelet Count 240 130-400 K/uL Mean Platelet Volume 9.3 7.4-10.4 fL Sodium Level 134 136-145 mmol/L Potassium Level 4.1 3.5-5.1 mmol/L Chloride Level 99 98-107 mmol/L Carbon Dioxide Level 29 21-32 mmol/L Anion Gap 6.0 3-11 mmol/L Blood Urea Nitrogen 8 7-18 mg/dl Creatinine 0.61 0.60-1.20 mg/dl Est Creatinine Clear Calc Drug Dose 86.0 ml/min Estimated GFR () 102.1 Estimated GFR (Non- 88.1 BUN/Creatinine Ratio 12.5 10-20 Random Glucose 103 70-99 mg/dl Calcium Level 8.8 8.5-10.1 mg/dl Test 02/08/17 16:56 Range/Units Bedside Glucose 109 70-90 mg/dl
[2017-02-08 21:00] VITALS: BP 127/78; PULSE 92
[2017-02-08] MEDS: SENNA 8.6 MG TAB PO SCH (21:07)
[2017-02-08] MEDS: HYDROXYCHLOROQUINE SULFATE 200 MG TAB PO SCH (21:07)
[2017-02-08] MEDS: MULTIVITAMIN TAB PO SCH (21:07)
[2017-02-08] MEDS: METOPROLOL TARTRATE 25 MG TAB PO SCH (21:07)
[2017-02-08 23:19] VITALS: BP 130/70; PULSE 90; TEMP 36.7; O2SAT 94
[2017-02-09] MEDS: OXYCODONE HCL IR 5 MG TAB (IMMEDIATE RELEASE) PO PRN (03:16)
[2017-02-09] MEDS: TRAMADOL HCL 50 MG TAB PO SCH ×2 (06:11→14:29)
[2017-02-09] MEDS: ACETAMINOPHEN 500 MG TAB PO SCH ×2 (06:11→14:29)
[2017-02-09 07:00] VITALS: BP 125/80; PULSE 76; TEMP 36.8; O2SAT 97
[2017-02-09 07:53] LABS: HEMATOCRIT 30.3 % (37-47); MEAN CELL VOLUME 81.2 fL (80-100); MEAN CORPUSCULAR HEMOGLOBIN 26.5 pg (25-34); MEAN CORPUSCULAR HGB CONC 32.7 g/dl (32-36); MEAN PLATELET VOLUME 9.2 fL (7.4-10.4); PLATELET COUNT 217 K/uL (130-400); RED BLOOD COUNT 3.73 M/uL (4.2-5.4); WHITE BLOOD COUNT 9.05 K/uL (4.8-10.8)
--- NOTE | 2017-02-09 07:54 | Orthopedic Progress Note ---
Orthopedic Progress Note Date of Service Feb 09, 2017. Subjective Post OP Day: 2 Reports: feeling well, pain controlled w PO medications, Denies: SOB, calf pain , chest pain, complaints, light headedness, nausea / vomiting Objective N/V intact, capillary refill less than 2 sec., dressing C/D/I, incision C/D/I, A &O x3 Fingers mobile, sling in tact. Date Time Temp Pulse Resp B/P Pulse Ox O2 Delivery O2 Flow Rate FiO2 02/09/17 07:00 36.8 76 16 125/80 97 Room Air 02/08/17 23:20 Room Air 02/08/17 23:19 36.7 90 16 130/70 94 Room Air 02/08/17 21:00 92 127/78 02/08/17 15:40 Room Air 02/08/17 15:08 36.9 92 18 129/58 95 Room Air 02/08/17 09:37 96 02/08/17 09:30 Room Air Laboratory Results 24 Hours: Test 02/09/17 07:36 Assessment & Plan Assessment: POD #2, Right TSA, biceps tenodesis. Plan: PT/ OT DVT proph- ASA D/C planning- [facility] vs. [facility] today if poss. Appreciate medicine input. Inhouse Planning Pain Management: Oxycontin, Dilaudid, PO Tylenol, Oxy IR DVT Prophylaxis: TEDs, SCDs, ASA Discharge Planning Discharge Planning: uncertain Pain Management: Oxycontin, PO Tylenol, Oxy IR DVT Prophylaxis: TEDs, ASA Therapy: Physical Therapy, Occupational Therapy
[2017-02-09] MEDS ORDERED: CLR10 PO (08:04)
[2017-02-09] MEDS ORDERED: METO25TA56 PO (08:04)
[2017-02-09] MEDS ORDERED: MELATAB2 PO (08:04)
[2017-02-09] MEDS ORDERED: OXYBUTYNIN PO (08:04)
[2017-02-09] MEDS ORDERED: AMB5 PO (08:04)
[2017-02-09] MEDS ORDERED: CALC-51 PO (08:04)
[2017-02-09] MEDS ORDERED: FLUT0.15 NAE (08:04)
[2017-02-09] MEDS ORDERED: ULT50X PO (08:04)
[2017-02-09] MEDS ORDERED: SENN-61 PO (08:04)
[2017-02-09] MEDS ORDERED: CITA20TA9 PO (08:04)
[2017-02-09] MEDS ORDERED: METF-384 PO (08:04)
[2017-02-09] MEDS ORDERED: MULT-506 PO (08:04)
[2017-02-09] MEDS ORDERED: LOSA25TA18 PO (08:04)
[2017-02-09] MEDS ORDERED: ACET-1138 PO (08:04)
[2017-02-09] MEDS ORDERED: HYDR200T5 PO (08:04)
[2017-02-09] MEDS ORDERED: OXYSR10 PO (08:04)
[2017-02-09] MEDS ORDERED: TROL10LO TOP (08:04)
[2017-02-09] MEDS ORDERED: ARTISOL8 OPB (08:04)
[2017-02-09] MEDS ORDERED: ASPI81TA28 PO (08:04)
[2017-02-09] MEDS ORDERED: BUSP-8 PO (08:04)
[2017-02-09] MEDS ORDERED: PRLSR20 PO (08:04)
[2017-02-09] MEDS ORDERED: TRIATAB3 PO (08:04)
[2017-02-09] MEDS ORDERED: POLY1POW2 PO (08:04)
[2017-02-09] MEDS ORDERED: RXC5 PO (08:04)
--- NOTE | 2017-02-09 08:12 | Discharge Instructions ---
Discharge Instructions Date of Service Feb 09, 2017. Admission Reason for Admission: Right Shoulder Degenerative Joint Disease Discharge Discharge Diagnosis / Problem: Left TSA, biceps tenodesis Discharge Goals Goal(s): Improve function Activity Recommendations Activity Level: Assistance Required . Additional Information Patient informed of condition: Yes Advance Directives: Yes DNR: No Level of Care: Acute Rehab Communicable Disease: No Prognosis: Improving Chapman Catheter: No Instructions / Follow-Up Instructions / Follow-Up ACTIVITY RECOMMENDATIONS: SELF CARE INSTRUCTIONS AFTER TOTAL SHOULDER ARTHROPLASTY A. You may do daily exercises as taught in physical therapy while in hospital. No lifting with the operative arm. Please schedule your outpatient physical therapy appointment to begin within 2-3 days after leaving the hospital. Specific restrictions will be written on your physical therapy prescription that is provided to you. B. You are to wear your sling/immobilizer at all times EXCEPT when performing your daily exercises, participating in physical therapy and for hygiene purposes. C. You may perform dry, daily dressing changes. Please keep your incision covered. You may shower 48 hours after surgery. Do not apply soap or any ointment/ lotions directly over incision. Do not soak incision in bath tub/swimming pool. D. You may use ice as needed to operative shoulder. SPECIAL CARE INSTRUCTIONS: MEDICATION INSTRUCTIONS: *It is recommended you take Aspirin 325mg daily for four weeks post-op. VERY IMPORTANT TO READ AND REVIEW A. There are a few signs you need to watch for after you are home. Call [facility] at [phone] if you experience any of the followin. Increased severe shoulder pain. Some pain is expected especially when you exercise. 2. Increased swelling in you shoulder or arm; pain or swelling in either upper extremity. 3. Any fluid drainage from the incision. 4. Shortness of breath or chest pain. B. Please call [facility] at [phone] if you have any questions or concerns about your operation or recovery. C. Call your physician if: 1. Temperature is greater than 101 degrees (F). 2. Pain is not relieved by prescribed pain medications. 3. Increase drainage or redness from incision. 4. Unanswered questions or concerns. FOLLOW UP VISIT: Please call [facility] at [phone] to schedule a follow up appointment with Dr. Jerry or his PA in 12-14 days from your surgery date. Current Hospital Diet Patient's current hospital diet: Diabetes Type 2 Diet Discharge Diet Recommended Diet: Diabetes Type 2 Diet Procedures Procedures Performed: Right Total Shoulder Arthoplasty Pending Studies Studies pending at discharge: no Medical Emergencies . Who to Call and When: Medical Emergencies: If at any time you feel your situation is an emergency, please call 911 immediately. . Non-Emergent Contact Non-Emergency issues call your: Primary Care Provider . . "Provider Documentation" section prepared by Olayinka Mills. Core Measure Problem Core Measures: VTE VTE Core Measures Date of VTE Diagnosis: Feb 07, 2017 Time of VTE Diagnosis: 12:00 Reason no anticoag overlap I/P: Treatment provided - N/A Reason no anticoag overlap @DC: Treatment provided - N/A [place] Drug Monitoring Program Search Results: patient reviewed within database, no issues identified
[2017-02-09 08:29] LABS: BUN/CREATININE RATIO 15.3 (10-20); CALCIUM 8.7 mg/dl (8.5-10.1); CREATININE 0.6 mg/dl (0.60-1.20); POTASSIUM 3.8 mmol/L (3.5-5.1)
[2017-02-09] MEDS: OXYCODONE HCL 10 MG TABCR (OXYCONTIN) PO SCH (09:00)
[2017-02-09] MEDS: CITALOPRAM 20 MG TAB PO SCH (09:26)
[2017-02-09] MEDS: DOCUSATE SODIUM 100 MG CAP PO SCH (09:26)
[2017-02-09] MEDS: CALCIUM CARBONATE 1250MG TAB PO SCH (09:26)
[2017-02-09] MEDS: LOSARTAN POTASSIUM 25 MG TAB PO SCH (09:26)
[2017-02-09] MEDS: LORATADINE 10 MG TAB PO SCH (09:26)
[2017-02-09] MEDS: PANTOprazole SOD 40 MG TAB PO SCH (09:27)
[2017-02-09] MEDS: ARTIFICIAL TEARS OP SOLN OPB SCH ×2 (09:27)
[2017-02-09] MEDS: POLYETHYLENE (MIRALAX) 17 GM PACK PO SCH (09:27)
[2017-02-09] MEDS: TRIAMTERENE/HCTZ 37.5/25MG TAB PO SCH (09:27)
[2017-02-09] MEDS: ASPIRIN 81 MG ECTAB PO SCH (09:27)
[2017-02-09] MEDS: OXYBUTYNIN CHLORIDE 5 MG TAB PO SCH (09:27)
[2017-02-09] MEDS: FLUTICASONE PROPIONATE NA SPR 16 GM BTL NAE SCH (09:27)
[2017-02-09] MEDS: INSULIN ASPART 100 UNITS/ML 3 ML PEN SC SCH ×2 (09:37→13:37)
[2017-02-09 12:29] VITALS: BP 125/80; PULSE 76; TEMP 36.8; O2SAT 97
--- NOTE | 2017-02-09 16:11 | Progress Note ---
Internal Med Progress Note Date of Service: Feb 09, 2017. Provider Documentation: SUBJECTIVE: Patient is sitting in her bed in no apparent distress. Pain has been tolerable. Denies any nausea/vomiting or SOB. No BM yet. No other new change or complaint. OBJECTIVE: Vital Signs-as noted below Examination: GEN: Alert/Awake and is in no acute distress sitting comfortably in bed with her Right arm in a sling HEENT: NC/AT, normal sclerae. Ears, Nose & Throat are normal looking. Neck: Supple, Midline trachea, No JVD. CARDIO: reg rate, S1/2 heard without m/g/r LUNGS: B/L Moderate air entry, Clear to auscultation. ABD: soft, non-tender, non-distended, no rebound or guarding EXTREMITY: R arm in [id number] bandages in place and are clean, dry and intact. NVI-she is able to perform hand policy loan calculator, 2+pulses. Drain in place with bloody drainage in container. Other extremities are warm and well-perfused. Some minor ecchymosis is noted on her L forearm. No edema. NEURO: CN 2-12 grossly intact, no gross focal deficits except minor numbness of thumb on right hand MSK: well-developed musculature, able to sit up in bed with minimal assistance. Rt arm in sling. SKIN: warm and dry and as above Lab data as noted below. ASSESSMENT & PLAN: s/p Right Total Shoulder Replacement : POD # 2. Surgery performed by Dr. Jerry. Clinically & hemodynamically doing well. -Post-operative pain well managed -H/H has been stable. No acute drop. -Encouraged to utilize spirometry to prevent post-op infection -PT/OT -Activity and wound care orders per ortho protocol History HTN: BP is well controlled -Continue Cozaar and Maxzide under parameters. Anxiety-controlled, -Continue Celexa and Buspar per home regimen Urinary incontinence-Continue Oxybutinin per home regimen. Chapman in place. Diabetes Type II: Stable. Metformin held and Novolog per ISS with pharmacy assist. GERD: Stable. Continue PPI. DVT Prophylaxis: As per Surgical Team. Code Status: FULL CODE Disposition: As per Surgical Team.Medical conditions are stable. Likely to rehab for a short stay and then home with friends. She lives alone but has support from her two daughters who live close by. Thank you for this consultation. We will follow the patient with you during their hospital stay. You can reach a [facility] via pager @ [phone]. Vital Signs: Date Time Temp Pulse Resp B/P Pulse Ox O2 Delivery O2 Flow Rate FiO2 02/09/17 12:29 36.8 76 16 97 Room Air 02/09/17 08:00 Room Air 02/09/17 07:00 36.8 76 16 125/80 97 Room Air 02/08/17 23:20 Room Air 02/08/17 23:19 36.7 90 16 130/70 94 Room Air 02/08/17 21:00 92 127/78 Lab Results: Results Past 24 Hours Test 02/08/17 16:56 02/08/17 20:54 02/09/17 06:43 02/09/17 07:36 Range/Units Bedside Glucose 109 96 109 70-90 mg/dl White Blood Count 9.05 4.8-10.8 K/uL Red Blood Count 3.73 4.2-5.4 M/uL Hemoglobin 9.9 12.0-16.0 g/dL Hematocrit 30.3 37-47 % Mean Corpuscular Volume 81.2 80-100 fL Mean Corpuscular Hemoglobin 26.5 25-34 pg Mean Corpuscular Hemoglobin Concent 32.7 32-36 g/dl RDW Standard Deviation 46.9 36.4-46.3 fL RDW Coefficient of Variation 15.9 11.5-14.5 % Platelet Count 217 130-400 K/uL Mean Platelet Volume 9.2 7.4-10.4 fL Sodium Level 128 136-145 mmol/L Potassium Level 3.8 3.5-5.1 mmol/L Chloride Level 91 98-107 mmol/L Carbon Dioxide Level 26 21-32 mmol/L Anion Gap 11.0 3-11 mmol/L Blood Urea Nitrogen 9 7-18 mg/dl Creatinine 0.60 0.60-1.20 mg/dl Est Creatinine Clear Calc Drug Dose 87.4 ml/min Estimated GFR () 102.6 Estimated GFR (Non- 88.5 BUN/Creatinine Ratio 15.3 10-20 Random Glucose 102 70-99 mg/dl Calcium Level 8.7 8.5-10.1 mg/dl Test 02/09/17 12:06 Range/Units Bedside Glucose 76 70-90 mg/dl
--- NOTE | 2017-02-13 16:25 | DISCHARGE SUMMARY ---
HISTORY OF PRESENT ILLNESS: This is a 76-year-old female patient of Dr. Jerry'sera complaining of chronic right shoulder pain, longstanding, progressively getting worse. The patient has been diagnosed with end-stage osteoarthritis per clinical and radiographic exams. PAST MEDICAL HISTORY: Hypertension, chronic cough, anxiety, carpal tunnel syndrome, osteoarthritis, spine problems, neck problems, sciatica, acid reflux and hiatal hernia. POSTOPERATIVE COURSE: The patient underwent a right total shoulder arthroplasty, biceps tenodesis, removal of loose bodies and rotator cuff debridement on 02/07/2017. Postoperatively, she was followed closely with medical consultation, physical therapy and pain control. She will continue on aspirin for DVT prophylaxis. The patient had an uneventful postoperative course and did well. She was [facility] to [facility] on postoperative day [facility]. PHYSICAL EXAMINATION: On discharge, right shoulder incision was clean, dry and intact. [place] were intact. Skin edges were approximated well. There was no redness or drainage. Neurologically and neurovascularly she was intact in her right upper extremity. DIAGNOSIS: Status post right total shoulder arthroplasty, biceps tenodesis, removal of loose bodies and rotator cuff debridement. She also has a history of hypertension, chronic cough, anxiety, carpal tunnel, osteoarthritis, spine problems, neck problems, sciatica, acid reflux and hiatal hernia. The patient was transferred to [facility] on postoperative day #2. She will continue her preadmission medications including aspirin for DVT prophylaxis. We will also add pain medications to her regimen. The patient will follow up as an outpatient as scheduled.
== END 2017-02-09 15:15 | DRG 483 ==
LOC: ENRESERVDT → ENRESERVTM → C.ACU 05:23 → C.MSW 10:21
PROVIDERS: ADMIT Orthopaedic Surgery Sports Medicine; ATTEND Orthopaedic Surgery Sports Medicine
PROC: 0RCJ0ZZ Extirpation of Matter from Right Shoulder Joint, Open Approach (ICD-10-PCS; principal; 2017-02-07 07:30)
PROC: 0RRJ0JZ Replacement of Right Shoulder Joint with Synthetic Substitute, Open Approach (ICD-10-PCS; principal; 2017-02-07 07:30)
PROC: 0LS10ZZ Reposition Right Shoulder Tendon, Open Approach (ICD-10-PCS; principal; 2017-02-07 07:30)
DX: M19.011 Primary osteoarthritis, right shoulder (principal); M24.011 Loose body in right shoulder; M65.811 Other synovitis and tenosynovitis, right shoulder; M75.111 Incomplete rotator cuff tear or rupture of right shoulder, not specified as traumatic; M75.81 Other shoulder lesions, right shoulder; I10 Essential (primary) hypertension; F41.9 Anxiety disorder, unspecified; R32 Unspecified urinary incontinence; E11.9 Type 2 diabetes mellitus without complications; K21.9 Gastro-esophageal reflux disease without esophagitis; Z96.653 Presence of artificial knee joint, bilateral; Z87.891 Personal history of nicotine dependence; Z79.1 Long term (current) use of non-steroidal anti-inflammatories (NSAID); Z79.82 Long term (current) use of aspirin; Z79.84 Long term (current) use of oral hypoglycemic drugs; Z79.899 Other long term (current) drug therapy; Z88.2 Allergy status to sulfonamides; Z88.5 Allergy status to narcotic agent